=== PATIENT | female | born 1960 | race African-American/Black ===

== ENCOUNTER 2019-10-12 12:24 | Inpatient (IN) | payer MEDICAID ==
[~2019-10-12] VITALS: Ht 165.1 cm; Wt 73.0 kg
[~2019-10-12 12:24] MED LIST: LIDOCAINE HCL/PF 1% 2ML VIAL ONE
[2019-10-12 14:08] LABS: BG CARBOXYHEMOGLOBIN 2.2 % (0.5-1.5); BG DEOXYHEMOGLOBIN 4.7 % (0.0-5.0); BG HCO3 ACT 18.5 mmol/L (22.0-26.0); BG METHEMOGLOBIN 0.3 % (0.0-1.5); BG OXYGEN SATURATION 95.2 % (92.0-98.5); BG OXYHEMOGLOBIN 92.8 % (94.0-97.0); BG PCO2 28.4 mmHg (35.0-45.0); BG PH 7.431 (7.350-7.450); BG PO2 74.8 mmHg (75.0-100.0); BG SAMPLE SITE RIGHT RADIAL; BG TOTAL HEMOGLOBIN 8.9 g/dL (12.0-18.0); BG VENT MODE ROOM AIR
[2019-10-12] MEDS ORDERED: CALCIUM CHLORIDE 1GM/10ML SYR IV ONE (15:00)
[2019-10-12] MEDS ORDERED: INSULIN REGULAR (HUMULIN R) 300UNITS/3ML IV ONE (15:00)
[2019-10-12] MEDS ORDERED: SODIUM BICARBONATE 8.4% 1 MEQ/ML 50ML SYR IV ONE (15:00)
[2019-10-12] MEDS ORDERED: DEXTROSE 50% WATER 50ML SYRINGE IV ONE (15:00)
[2019-10-12 15:08] LABS: BASOPHILS % 0.5 % (0.0-2.0); EOSINOPHILS % 4.2 % (0.0-5.0); HEMATOCRIT. 24.5 % (36.0-48.0); HEMOGLOBIN. 7.9 g/dL (12.0-16.0); MEAN CORPUSCULAR HEMOGLOBIN 26.6 pg (28.0-32.0); MEAN CORPUSCULAR VOLUME 82.6 fL (81.0-99.0); MONOCYTES % 7.9 % (2.0-8.0); NEUTROPHILS % 66.4 % (40.0-76.0); PLATELET 272 x1000/uL (130-400); RED BLOOD CELL COUNT 2.97 mill/uL (4.2-5.4)
[2019-10-12 15:13] LABS: CHLORIDE 100 mEq/L (98-107)
[2019-10-12 15:18] LABS: PHOSPHORUS 3.6 mg/dL (2.5-4.9)
[2019-10-12 16:18] LABS: PLATELET ESTIMATE NORMAL
[2019-10-12] MEDS ORDERED: GUAIFENESIN 200MG/10ML SUGAR FREE UDC PO PRN (16:30)
[2019-10-12] MEDS ORDERED: NA PHOS,M-B/NA PHOS,DI-BA ENEMA 118ML PR PRN (16:30)
[2019-10-12] MEDS ORDERED: DOCUSATE SODIUM 100MG CAPSULE PO PRN (16:30)
[2019-10-12] MEDS ORDERED: ONDANSETRON HCL 4MG/2ML INJ IV PRN (16:30)
[2019-10-13] VITALS: BP 150/99
[2019-10-13] MEDS: CLONIDINE 0.1MG TABLET PO PRN (02:33)
[2019-10-13 04:00] VITALS: BP 150/90
[2019-10-13 06:21] LABS: BASOPHILS % 0.7 % (0.0-2.0); EOSINOPHILS % 6.5 % (0.0-5.0); HEMATOCRIT. 24.8 % (36.0-48.0); HEMOGLOBIN. 8.2 g/dL (12.0-16.0); LYMPHOCYTES % 22.8 % (20.0-50.0); MEAN CORPUSCULAR HEMOGLOBIN 27.2 pg (28.0-32.0); MEAN CORPUSCULAR VOLUME 82.1 fL (81.0-99.0); MEAN PLATELET VOLUME 8.2 fl (7.4-10.4); MONOCYTES % 8.2 % (2.0-8.0); NEUTROPHILS % 61.8 % (40.0-76.0); PLATELET 292 x1000/uL (130-400); RED BLOOD CELL COUNT 3.02 mill/uL (4.2-5.4); RED CELL DISTRIBUTION WIDTH 27.9 % (11.6-14.6)
[2019-10-13 06:30] LABS: CHLORIDE 102 mEq/L (98-107)
[2019-10-13 06:56] LABS: HEPATITIS B SURFACE ANTIGEN NEGATIVE
[2019-10-13 08:00] VITALS: BP 141/75
[2019-10-13] MEDS ORDERED: HEPARIN SODIUM 1,000 UNIT/1ML VIAL IV NR (09:45)
[2019-10-13 10:15] LABS: TOTAL IRON BINDING CAPACITY 134 ug/dL (250-450)
[2019-10-13 12:00] VITALS: BP 121/86
[2019-10-13] MEDS: ACETAMINOPHEN 325MG TABLET PO PRN (14:32)
[2019-10-13 16:00] VITALS: BP 124/92
[2019-10-13 20:00] VITALS: BP 126/82
[2019-10-13] MEDS: HYDROCODONE/ACETAMINOPHEN 5/325MG TABLET PO PRN (22:04)
[2019-10-13] MEDS: EPOETIN ALFA 4000UNITS/ML VIAL SUBCUT SCH (22:27)
[2019-10-14] VITALS: BP 124/86
[2019-10-14] MEDS: NICOTINE 21MG PATCH TD SCH ×2 (00:36→21:05)
[2019-10-14] MEDS: DIPHENHYDRAMINE 50MG/ML VIAL IV PRN ×3 (02:31→22:15)
[2019-10-14 04:00] VITALS: BP 138/88
[2019-10-14 07:36] LABS: BASOPHILS % 0.4 % (0.0-2.0); EOSINOPHILS % 9.1 % (0.0-5.0); HEMATOCRIT. 23.6 % (36.0-48.0); HEMOGLOBIN. 7.7 g/dL (12.0-16.0); LYMPHOCYTES % 30.2 % (20.0-50.0); MEAN CORPUSCULAR HEMOGLOBIN 27.6 pg (28.0-32.0); MEAN CORPUSCULAR VOLUME 84.2 fL (81.0-99.0); MEAN PLATELET VOLUME 7.9 fl (7.4-10.4); MONOCYTES % 9.4 % (2.0-8.0); NEUTROPHILS % 50.9 % (40.0-76.0); PLATELET 266 x1000/uL (130-400); RED BLOOD CELL COUNT 2.81 mill/uL (4.2-5.4); RED CELL DISTRIBUTION WIDTH 28.2 % (11.6-14.6)
[2019-10-14 08:00] VITALS: BP 123/84
[2019-10-14 12:00] VITALS: BP 124/78
[2019-10-14 16:00] VITALS: BP 148/78
[2019-10-14 20:00] VITALS: BP 158/108
[2019-10-14] MEDS: CLONIDINE 0.1MG TABLET PO PRN (21:05)
[2019-10-14] MEDS: HYDROCODONE/ACETAMINOPHEN 5/325MG TABLET PO PRN (21:06)
[2019-10-15] VITALS: BP 134/77
[2019-10-15] MEDS: MORPHINE SULFATE 2 MG/ML CPJ (NOT FOR IM USE) IV PRN (00:10)
[2019-10-15] MEDS: DIPHENHYDRAMINE 50MG/ML VIAL IV PRN (03:04)
[2019-10-15 04:00] VITALS: BP 146/85
[2019-10-15 08:00] VITALS: BP 140/82
[2019-10-15] MEDS: ACETAMINOPHEN 325MG TABLET PO PRN (09:52)
[2019-10-15 12:00] VITALS: BP 118/79
[2019-10-15 16:00] VITALS: BP 128/94
[2019-10-15 20:00] VITALS: BP 119/84
[2019-10-15] MEDS: NICOTINE 21MG PATCH TD SCH (20:55)
[2019-10-15] MEDS: HYDROCODONE/ACETAMINOPHEN 5/325MG TABLET PO PRN (23:41)
[2019-10-16] VITALS: BP 176/80
[2019-10-16] MEDS: CLONIDINE 0.1MG TABLET PO PRN ×2 (00:18→15:26)
[2019-10-16] MEDS: DIPHENHYDRAMINE 50MG/ML VIAL IV PRN ×2 (00:27→15:18)
[2019-10-16 04:00] VITALS: BP 146/87
[2019-10-16 08:00] VITALS: BP 144/70
[2019-10-16 12:00] VITALS: BP 170/90
[2019-10-16 13:15] LABS: BASOPHILS % 0.5 % (0.0-2.0); EOSINOPHILS % 8.6 % (0.0-5.0); HEMATOCRIT. 27.6 % (36.0-48.0); HEMOGLOBIN. 9.1 g/dL (12.0-16.0); MEAN CORPUSCULAR HEMOGLOBIN 27.6 pg (28.0-32.0); MEAN CORPUSCULAR VOLUME 83.6 fL (81.0-99.0); MEAN PLATELET VOLUME 8.7 fl (7.4-10.4); MONOCYTES % 5.7 % (2.0-8.0); NEUTROPHILS % 63.2 % (40.0-76.0); PLATELET 305 x1000/uL (130-400); RED CELL DISTRIBUTION WIDTH 28.8 % (11.6-14.6)
[2019-10-16] MEDS: MORPHINE SULFATE 2 MG/ML CPJ (NOT FOR IM USE) IV PRN (13:58)
[2019-10-16 16:00] VITALS: BP 178/82
[2019-10-16 20:00] VITALS: BP 139/90
[2019-10-16] MEDS: NICOTINE 21MG PATCH TD SCH (20:59)
[2019-10-16 21:18] LABS: HEPATITIS A AB IGM NEGATIVE (NEGATIVE)
[2019-10-17] VITALS: BP 128/87
[2019-10-17] MEDS: HYDROCODONE/ACETAMINOPHEN 5/325MG TABLET PO PRN (00:44)
[2019-10-17 04:00] VITALS: BP 109/80
[2019-10-17] MEDS: EPOETIN ALFA 4000UNITS/ML VIAL SUBCUT SCH (04:51)
[2019-10-17] MEDS: DIPHENHYDRAMINE 50MG/ML VIAL IV PRN ×2 (05:12→22:45)
[2019-10-17 08:00] VITALS: BP 130/79
[2019-10-17 10:32] LABS: BASOPHILS % 0.7 % (0.0-2.0); EOSINOPHILS % 3.3 % (0.0-5.0); HEMATOCRIT. 25.5 % (36.0-48.0); HEMOGLOBIN. 8.4 g/dL (12.0-16.0); LYMPHOCYTES % 21.5 % (20.0-50.0); MEAN CORPUSCULAR HEMOGLOBIN 27.3 pg (28.0-32.0); MEAN CORPUSCULAR VOLUME 83.1 fL (81.0-99.0); NEUTROPHILS % 68.5 % (40.0-76.0); PLATELET 225 x1000/uL (130-400); RED BLOOD CELL COUNT 3.06 mill/uL (4.2-5.4); RED CELL DISTRIBUTION WIDTH 28.6 % (11.6-14.6)
[2019-10-17 12:00] VITALS: BP 126/85
[2019-10-17 16:00] VITALS: BP 125/84
[2019-10-17] MEDS ORDERED: METO1TAB26 MT (19:54)
[2019-10-17] MEDS ORDERED: ALLO100T57 MT (19:54)
[2019-10-17] MEDS ORDERED: LISI-604 MT (19:55)
[2019-10-17] MEDS ORDERED: PRO1 MT (19:55)
[2019-10-17 20:00] VITALS: BP 140/84
[2019-10-17] MEDS: NICOTINE 21MG PATCH TD SCH (21:23)
[2019-10-17] MEDS: ACETAMINOPHEN 325MG TABLET PO PRN (21:23)
[2019-10-18] VITALS: BP 130/85
[2019-10-18] MEDS: ACETAMINOPHEN 325MG TABLET PO PRN ×3 (03:27→23:18)
[2019-10-18 04:00] VITALS: BP 134/88
[2019-10-18 08:00] VITALS: BP 128/66
[2019-10-18] MEDS: DIPHENHYDRAMINE 50MG/ML VIAL IV PRN (09:28)
[2019-10-18 09:47] LABS: BASOPHILS % 0.3 % (0.0-2.0); EOSINOPHILS % 11.2 % (0.0-5.0); HEMATOCRIT. 24.4 % (36.0-48.0); LYMPHOCYTES % 26.2 % (20.0-50.0); MEAN CORPUSCULAR HEMOGLOBIN 27.5 pg (28.0-32.0); MEAN CORPUSCULAR VOLUME 83.3 fL (81.0-99.0); MEAN PLATELET VOLUME 8.2 fl (7.4-10.4); MONOCYTES % 6.2 % (2.0-8.0); NEUTROPHILS % 56.1 % (40.0-76.0); PLATELET 229 x1000/uL (130-400); RED BLOOD CELL COUNT 2.93 mill/uL (4.2-5.4)
[2019-10-18] MEDS: DIPHENHYDRAMINE 50MG CAPSULE PO PRN (10:09)
[2019-10-18 12:00] VITALS: BP 134/84
[2019-10-18 16:00] VITALS: BP 124/84
[2019-10-18 20:00] VITALS: BP 111/73
[2019-10-18] MEDS: NICOTINE 21MG PATCH TD SCH (21:27)
[2019-10-18] MEDS: EPOETIN ALFA 4000UNITS/ML VIAL SUBCUT SCH (21:27)
[2019-10-19] VITALS: BP 126/90
[2019-10-19] MEDS: DIPHENHYDRAMINE 50MG CAPSULE PO PRN ×2 (02:20→21:11)
[2019-10-19 04:00] VITALS: BP 116/77
[2019-10-19 07:50] LABS: BASOPHILS % 0.2 % (0.0-2.0); EOSINOPHILS % 9.2 % (0.0-5.0); HEMATOCRIT. 23.6 % (36.0-48.0); HEMOGLOBIN. 7.8 g/dL (12.0-16.0); LYMPHOCYTES % 17.4 % (20.0-50.0); MEAN CORPUSCULAR VOLUME 84.3 fL (81.0-99.0); MEAN PLATELET VOLUME 8.2 fl (7.4-10.4); MONOCYTES % 5.5 % (2.0-8.0); NEUTROPHILS % 67.7 % (40.0-76.0); PLATELET 219 x1000/uL (130-400); RED CELL DISTRIBUTION WIDTH 28.9 % (11.6-14.6)
[2019-10-19 08:00] VITALS: BP 134/88
[2019-10-19 12:00] VITALS: BP 147/89
[2019-10-19 16:00] VITALS: BP 134/96
[2019-10-19 20:00] VITALS: BP 153/95
[2019-10-19] MEDS: HYDROCODONE/ACETAMINOPHEN 5/325MG TABLET PO PRN (21:11)
[2019-10-19] MEDS: NICOTINE 21MG PATCH TD SCH (21:12)
[2019-10-19] MEDS: EPOETIN ALFA 10000UNITS/ML VIAL SUBCUT SCH (21:24)
[2019-10-20] VITALS: BP 129/88
[2019-10-20 04:00] VITALS: BP 160/92
[2019-10-20 06:41] LABS: BASOPHILS % 0.8 % (0.0-2.0); EOSINOPHILS % 9.9 % (0.0-5.0); HEMATOCRIT. 25.4 % (36.0-48.0); HEMOGLOBIN. 8.3 g/dL (12.0-16.0); LYMPHOCYTES % 25.7 % (20.0-50.0); MEAN CORPUSCULAR HEMOGLOBIN 27.6 pg (28.0-32.0); MEAN CORPUSCULAR VOLUME 84.2 fL (81.0-99.0); MEAN PLATELET VOLUME 8.3 fl (7.4-10.4); NEUTROPHILS % 58.6 % (40.0-76.0); PLATELET 232 x1000/uL (130-400); RED BLOOD CELL COUNT 3.01 mill/uL (4.2-5.4); RED CELL DISTRIBUTION WIDTH 29.3 % (11.6-14.6)
[2019-10-20] MEDS: DIPHENHYDRAMINE 50MG CAPSULE PO PRN ×3 (06:47→22:19)
[2019-10-20 08:00] VITALS: BP 136/86
[2019-10-20 12:00] VITALS: BP 149/98
[2019-10-20] MEDS: HYDROCODONE/ACETAMINOPHEN 5/325MG TABLET PO PRN ×2 (12:19→18:51)
[2019-10-20 16:00] VITALS: BP 136/84
[2019-10-20 20:00] VITALS: BP 130/89
[2019-10-20] MEDS: NICOTINE 21MG PATCH TD SCH (20:38)
[2019-10-21] VITALS: BP 157/106
[2019-10-21 04:00] VITALS: BP 159/99
[2019-10-21] MEDS: DIPHENHYDRAMINE 50MG CAPSULE PO PRN (04:10)
[2019-10-21 08:00] VITALS: BP 144/102
[2019-10-21 12:00] VITALS: BP 145/100
[2019-10-21] MEDS: ACETAMINOPHEN 325MG TABLET PO PRN (12:59)
[2019-10-21 16:00] VITALS: BP 160/97
[2019-10-21] MEDS: HYDROCODONE/ACETAMINOPHEN 5/325MG TABLET PO PRN (19:41)
[2019-10-21 20:00] VITALS: BP 139/102
[2019-10-21] MEDS: EPOETIN ALFA 10000UNITS/ML VIAL SUBCUT SCH (22:21)
[2019-10-21] MEDS: NICOTINE 21MG PATCH TD SCH (22:22)
[2019-10-22] VITALS: BP 148/100
[2019-10-22] MEDS: NICOTINE 21MG PATCH TD SCH ×2 (00:03→21:56)
[2019-10-22] MEDS: DIPHENHYDRAMINE 50MG CAPSULE PO PRN ×3 (00:54→17:28)
[2019-10-22 04:00] VITALS: BP 142/94
[2019-10-22] MEDS: CLONIDINE 0.1MG TABLET PO PRN (07:53)
[2019-10-22] MEDS: HYDROCODONE/ACETAMINOPHEN 5/325MG TABLET PO PRN ×2 (07:54→23:35)
[2019-10-22 08:00] VITALS: BP 184/111
[2019-10-22 12:00] VITALS: BP 157/94
[2019-10-22 16:00] VITALS: BP 144/102
[2019-10-22 20:00] VITALS: BP 176/85
[2019-10-23] VITALS: BP 141/102
[2019-10-23 04:00] VITALS: BP 162/97
[2019-10-23] MEDS: DIPHENHYDRAMINE 50MG CAPSULE PO PRN ×2 (04:16→20:36)
[2019-10-23 08:00] VITALS: BP 157/74
[2019-10-23 08:13] LABS: HEMATOCRIT. 28.5 % (36.0-48.0); HEMOGLOBIN. 9.3 g/dL (12.0-16.0); MEAN CORPUSCULAR HEMOGLOBIN 28.3 pg (28.0-32.0); MEAN CORPUSCULAR VOLUME 86.4 fL (81.0-99.0); PLATELET 232 x1000/uL (130-400); RED BLOOD CELL COUNT 3.29 mill/uL (4.2-5.4); RED CELL DISTRIBUTION WIDTH 28.8 % (11.6-14.6)
[2019-10-23] MEDS ORDERED: DEXTROSE 50% WATER 50ML SYRINGE IV ONE (08:38)
[2019-10-23] MEDS ORDERED: DEXTROSE 50% WATER 50ML SYRINGE IV SCH (08:45)
[2019-10-23] MEDS ORDERED: HEPARIN SODIUM 1,000 UNIT/1ML VIAL IV SCH (09:15)
[2019-10-23 12:00] VITALS: BP 139/86
[2019-10-23 14:20] LABS: ATYPICAL LYMPHOCYTES 2; NUCLEATED RED BLOOD CELLS 6 /100 WBC
[2019-10-23 14:22] LABS: PLATELET ESTIMATE NORMAL
[2019-10-23] MEDS: HYDROCODONE/ACETAMINOPHEN 5/325MG TABLET PO PRN ×2 (15:17→21:42)
[2019-10-23 16:00] VITALS: BP 153/75
[2019-10-23 20:00] VITALS: BP 164/99
[2019-10-23] MEDS: NICOTINE 21MG PATCH TD SCH (20:37)
[2019-10-23] MEDS: CLONIDINE 0.1MG TABLET PO PRN (20:37)
[2019-10-24] VITALS (7 sets, daily range): BP systolic 115–185; BP diastolic 84–109
[2019-10-24] MEDS: DIPHENHYDRAMINE 50MG CAPSULE PO PRN (03:52)
[2019-10-24] MEDS: CLONIDINE 0.1MG TABLET PO PRN (04:41)
[2019-10-24] MEDS: HYDROCODONE/ACETAMINOPHEN 5/325MG TABLET PO PRN (13:28)
== END 2019-10-24 17:57 | disposition home or self-care (01) | DRG 194 ==
LOC: ER 12:24 → 6WST 15:22 → EDBEDREQ 15:25 → EDBEDREQTM 15:25 → ENRESERV 22:34 → 6EST 10-15 15:03
PROVIDERS: ADMIT Hospitalist; ATTEND Hospitalist
PROC: 5A1D70Z Performance of Urinary Filtration, Intermittent, Less than 6 Hours Per Day (ICD-10-PCS; principal; 2019-10-12)
PROC: 5A1D70Z Performance of Urinary Filtration, Intermittent, Less than 6 Hours Per Day (ICD-10-PCS; 2019-10-16)
PROC: 5A1D70Z Performance of Urinary Filtration, Intermittent, Less than 6 Hours Per Day (ICD-10-PCS; 2019-10-18)
PROC: 5A1D70Z Performance of Urinary Filtration, Intermittent, Less than 6 Hours Per Day (ICD-10-PCS; 2019-10-19)
PROC: 5A1D70Z Performance of Urinary Filtration, Intermittent, Less than 6 Hours Per Day (ICD-10-PCS; 2019-10-23)
DX: I13.2 Hypertensive heart and chronic kidney disease with heart failure and with stage 5 chronic kidney disease, or end stage renal disease (principal); E43 Unspecified severe protein-calorie malnutrition; N17.9 Acute kidney failure, unspecified; E11.22 Type 2 diabetes mellitus with diabetic chronic kidney disease; I50.33 Acute on chronic diastolic (congestive) heart failure; N18.6 End stage renal disease; E87.1 Hypo-osmolality and hyponatremia; D63.1 Anemia in chronic kidney disease; E11.649 Type 2 diabetes mellitus with hypoglycemia without coma; Z20.828 Contact with and (suspected) exposure to other viral communicable diseases; Z21 Asymptomatic human immunodeficiency virus [HIV] infection status; Z82.49 Family history of ischemic heart disease and other diseases of the circulatory system; Z99.2 Dependence on renal dialysis; Z91.15 Patient's noncompliance with renal dialysis; Z68.26 Body mass index [BMI] 26.0-26.9, adult; Z79.899 Other long term (current) drug therapy
CPT/HCPCS: 36415; 36600; 71045; 80048; 80053; 82375; 82805; 82962; 83540; 83550; 83735; 84100; 84484; 85025; 86705; 86706; 86709; 86803; 87340; 93005; 93970; 97162; 97530; 97535; 99285; J0885; J1200; J1644; J2270; J3490; Q0163; U0003-CS

== ENCOUNTER 2019-10-26 02:42 | Inpatient (IN) | payer MEDICAID ==
[~2019-10-26] VITALS: Ht 315 cm; Wt 66.2 kg
[~2019-10-26 02:42] MED LIST changes: +ALLO100T57 MT; -LIDOCAINE HCL/PF 1% 2ML VIAL ONE; +LISI-604 MT; +METO1TAB26 MT; +PRO1 MT
[2019-10-26 05:44] LABS: HEMATOCRIT. 33.7 % (36.0-48.0); HEMOGLOBIN. 10.6 g/dL (12.0-16.0); MEAN CORPUSCULAR HEMOGLOBIN 28.3 pg (28.0-32.0); MEAN CORPUSCULAR VOLUME 89.7 fL (81.0-99.0); MEAN PLATELET VOLUME 9.7 fl (7.4-10.4); PLATELET 241 x1000/uL (130-400); RED BLOOD CELL COUNT 3.76 mill/uL (4.2-5.4); RED CELL DISTRIBUTION WIDTH 31.1 % (11.6-14.6)
[2019-10-26 05:48] LABS: CHLORIDE 103 mEq/L (98-107)
[2019-10-26 08:32] LABS: NUCLEATED RED BLOOD CELLS 16 /100 WBC
[2019-10-26 08:34] LABS: PLATELET ESTIMATE NORMAL
[2019-10-26] MEDS ORDERED: ZOLPIDEM TARTRATE 5MG TABLET PO PRN (08:45)
[2019-10-26] MEDS ORDERED: ACETAMINOPHEN 325MG TABLET PO PRN (08:45)
[2019-10-26] MEDS ORDERED: DOCUSATE SODIUM 100MG CAPSULE PO PRN (08:45)
[2019-10-26] MEDS ORDERED: IPRATROPIUM/ALBUTEROL 0.5-3(2.5)MG/3ML NEB NEB PRN (08:45)
[2019-10-26] MEDS ORDERED: NITROGLYCERIN 0.4MG TABLET SL SL PRN (08:45)
[2019-10-26] MEDS ORDERED: SODIUM POLYSTYRENE SULFONATE 15 G/60 ML BOT PO SCH (08:45)
[2019-10-26] MEDS ORDERED: GUAIFENESIN 200MG/10ML SUGAR FREE UDC PO PRN (08:45)
[2019-10-26] MEDS: ZINC SULFATE 220 MG ( 50 ) CAPSULE PO SCH (09:33)
[2019-10-26] MEDS: ASPIRIN 325MG EC TABLET PO SCH (09:34)
[2019-10-26] MEDS: FAMOTIDINE 20MG TABLET PO SCH (09:35)
[2019-10-26] MEDS: ENOXAPARIN 30MG/0.3ML SYR SUBCUT SCH (09:35)
[2019-10-26] MEDS: FOLIC ACID/VITAMIN B COMP W-C TABLET PO SCH (09:45)
[2019-10-26] MEDS: ASCORBIC ACID 500 MG TABLET PO SCH ×2 (11:54→21:00)
[2019-10-26] MEDS: SEVELAMER CARBONATE 800 MG TABLET PO SCH ×2 (11:54→18:30)
[2019-10-26 15:00] VITALS: BP 105/70
[2019-10-26 15:15] VITALS: BP 117/73
[2019-10-26 18:53] LABS: CREATINE KINASE MB FRACTION 1.8 ng/mL (0.5-3.6)
[2019-10-26] MEDS ORDERED: ASPI-1497 PO (19:12)
[2019-10-26] MEDS ORDERED: MEGE400O5 MT (19:12)
[2019-10-26] MEDS ORDERED: [UNRECOGNIZED DRUG - OTHER] (19:41)
[2019-10-26] MEDS ORDERED: MEGE400O5 PO (19:41)
[2019-10-26 19:57] VITALS: BP 131/80
[2019-10-27 00:02] LABS: CREATINE KINASE MB FRACTION 3.2 ng/mL (0.5-3.6)
[2019-10-27 00:04] VITALS: BP 143/77
[2019-10-27 04:48] VITALS: BP 139/80
[2019-10-27 06:27] LABS: HEMATOCRIT. 32.5 % (36.0-48.0); HEMOGLOBIN. 9.7 g/dL (12.0-16.0); MEAN CORPUSCULAR HEMOGLOBIN 28.1 pg (28.0-32.0); MEAN CORPUSCULAR VOLUME 93.9 fL (81.0-99.0); PLATELET 244 x1000/uL (130-400); RED BLOOD CELL COUNT 3.46 mill/uL (4.2-5.4); RED CELL DISTRIBUTION WIDTH 32.3 % (11.6-14.6)
[2019-10-27] MEDS: FOLIC ACID/VITAMIN B COMP W-C TABLET PO SCH (08:56)
[2019-10-27] MEDS: ASPIRIN 325MG EC TABLET PO SCH (08:56)
[2019-10-27] MEDS: ASCORBIC ACID 500 MG TABLET PO SCH ×2 (08:56→21:29)
[2019-10-27] MEDS: ZINC SULFATE 220 MG ( 50 ) CAPSULE PO SCH (08:56)
[2019-10-27] MEDS: SEVELAMER CARBONATE 800 MG TABLET PO SCH ×3 (08:56→17:32)
[2019-10-27] MEDS: ENOXAPARIN 30MG/0.3ML SYR SUBCUT SCH (08:56)
[2019-10-27] MEDS: FAMOTIDINE 20MG TABLET PO SCH (08:56)
[2019-10-27 12:00] VITALS: BP 132/62
[2019-10-27 15:00] LABS: NUCLEATED RED BLOOD CELLS 18 /100 WBC; PLATELET ESTIMATE NORMAL
[2019-10-27 20:00] VITALS: BP 116/73
[2019-10-28 00:07] VITALS: BP 111/74
[2019-10-28 04:00] VITALS: BP 141/74
[2019-10-28 06:18] LABS: HEMATOCRIT. 28.9 % (36.0-48.0); HEMOGLOBIN. 8.8 g/dL (12.0-16.0); MEAN CORPUSCULAR HEMOGLOBIN 28.3 pg (28.0-32.0); MEAN PLATELET VOLUME 9.6 fl (7.4-10.4); PLATELET 168 x1000/uL (130-400); RED BLOOD CELL COUNT 3.11 mill/uL (4.2-5.4); RED CELL DISTRIBUTION WIDTH 30.6 % (11.6-14.6)
[2019-10-28 08:00] VITALS: BP 159/85
[2019-10-28] MEDS: ASCORBIC ACID 500 MG TABLET PO SCH ×2 (08:03→21:07)
[2019-10-28] MEDS: FOLIC ACID/VITAMIN B COMP W-C TABLET PO SCH (08:03)
[2019-10-28] MEDS: ENOXAPARIN 30MG/0.3ML SYR SUBCUT SCH (08:03)
[2019-10-28] MEDS: ASPIRIN 325MG EC TABLET PO SCH (08:03)
[2019-10-28] MEDS: FAMOTIDINE 20MG TABLET PO SCH (08:04)
[2019-10-28] MEDS: ZINC SULFATE 220 MG ( 50 ) CAPSULE PO SCH (08:04)
[2019-10-28] MEDS: SEVELAMER CARBONATE 800 MG TABLET PO SCH ×3 (08:04→17:14)
[2019-10-28 09:21] LABS: NUCLEATED RED BLOOD CELLS 31 /100 WBC
[2019-10-28 09:23] LABS: PLATELET ESTIMATE NORMAL
[2019-10-28 13:50] LABS: CHLORIDE 107 mEq/L (98-107)
[2019-10-28 14:18] LABS: HEPATITIS B SURFACE ANTIGEN NEGATIVE
[2019-10-28 14:47] LABS: HEPATITIS A AB IGM NEGATIVE (NEGATIVE)
[2019-10-28 16:00] VITALS: BP 138/80
[2019-10-28 16:45] LABS: FOLIC ACID (FOLATE) SERUM >20 ng/mL ng/mL (>5.38)
[2019-10-28 16:57] LABS: VITAMIN B12 SERUM >2000 pg/mL pg/mL (211-911)
[2019-10-28 19:45] VITALS: BP 128/85
[2019-10-28] MEDS: ACETAMINOPHEN 325MG TABLET PO PRN (21:08)
[2019-10-29] VITALS: BP 144/85
[2019-10-29 04:00] VITALS: BP 132/64
[2019-10-29 07:39] LABS: BASOPHILS % 1.1 % (0.0-2.0); EOSINOPHILS % 3.1 % (0.0-5.0); HEMATOCRIT. 28.8 % (36.0-48.0); HEMOGLOBIN. 8.8 g/dL (12.0-16.0); LYMPHOCYTES % 24.7 % (20.0-50.0); MEAN CORPUSCULAR HEMOGLOBIN 29.2 pg (28.0-32.0); MEAN CORPUSCULAR VOLUME 95.3 fL (81.0-99.0); MEAN PLATELET VOLUME 9.7 fl (7.4-10.4); MONOCYTES % 8.5 % (2.0-8.0); NEUTROPHILS % 62.6 % (40.0-76.0); PLATELET 162 x1000/uL (130-400); RED BLOOD CELL COUNT 3.03 mill/uL (4.2-5.4); RED CELL DISTRIBUTION WIDTH 30.5 % (11.6-14.6)
[2019-10-29 08:00] VITALS: BP 124/77
[2019-10-29] MEDS: FAMOTIDINE 20MG TABLET PO SCH (08:57)
[2019-10-29] MEDS: ASPIRIN 325MG EC TABLET PO SCH (08:57)
[2019-10-29] MEDS: FOLIC ACID/VITAMIN B COMP W-C TABLET PO SCH (08:58)
[2019-10-29] MEDS: ASCORBIC ACID 500 MG TABLET PO SCH ×2 (08:58→20:33)
[2019-10-29] MEDS: ZINC SULFATE 220 MG ( 50 ) CAPSULE PO SCH (08:58)
[2019-10-29] MEDS: SEVELAMER CARBONATE 800 MG TABLET PO SCH ×3 (08:58→18:21)
[2019-10-29] MEDS: ENOXAPARIN 30MG/0.3ML SYR SUBCUT SCH (08:58)
[2019-10-29] MEDS ORDERED: POTASSIUM CHLORIDE 10MEQ TABLET SR PO SCH (11:00)
[2019-10-29 12:00] VITALS: BP 186/95
[2019-10-29 12:40] LABS: PHOSPHORUS 2.8 mg/dL (2.5-4.9)
[2019-10-29] MEDS: CLONIDINE 0.1MG TABLET PO PRN ×2 (14:03→20:33)
[2019-10-29 16:00] VITALS: BP 128/61
[2019-10-29 17:27] LABS: ETHANOL BLOOD < 10 mg/dL
[2019-10-29 17:33] LABS: T4 FREE 1.35 ng/dL (0.76-1.46)
[2019-10-29 20:00] VITALS: BP 163/96
[2019-10-30] VITALS (7 sets, daily range): BP systolic 124–198; BP diastolic 85–102
[2019-10-30 07:36] LABS: HEMATOCRIT. 30.1 % (36.0-48.0); HEMOGLOBIN. 9.1 g/dL (12.0-16.0); MEAN CORPUSCULAR HEMOGLOBIN 29.3 pg (28.0-32.0); MEAN CORPUSCULAR VOLUME 97.1 fL (81.0-99.0); MEAN PLATELET VOLUME 9.8 fl (7.4-10.4); PLATELET 162 x1000/uL (130-400); RED CELL DISTRIBUTION WIDTH 30.7 % (11.6-14.6)
[2019-10-30] MEDS: FAMOTIDINE 20MG TABLET PO SCH (08:46)
[2019-10-30] MEDS: ZINC SULFATE 220 MG ( 50 ) CAPSULE PO SCH (08:46)
[2019-10-30] MEDS: ASPIRIN 325MG EC TABLET PO SCH (08:46)
[2019-10-30] MEDS: ASCORBIC ACID 500 MG TABLET PO SCH ×2 (08:46→20:56)
[2019-10-30] MEDS: SEVELAMER CARBONATE 800 MG TABLET PO SCH ×3 (08:46→18:13)
[2019-10-30] MEDS: FOLIC ACID/VITAMIN B COMP W-C TABLET PO SCH (08:46)
[2019-10-30] MEDS: ENOXAPARIN 30MG/0.3ML SYR SUBCUT SCH (08:47)
[2019-10-30 14:01] LABS: NUCLEATED RED BLOOD CELLS 71 /100 WBC; PLATELET ESTIMATE NORMAL
[2019-10-30] MEDS: CLONIDINE 0.1MG TABLET PO PRN (18:14)
[2019-10-31] VITALS: BP 202/104
[2019-10-31] MEDS: CLONIDINE 0.1MG TABLET PO PRN ×2 (00:16→20:56)
[2019-10-31 04:00] VITALS: BP 131/83
[2019-10-31 06:46] LABS: HEMATOCRIT. 28.2 % (36.0-48.0); HEMOGLOBIN. 8.7 g/dL (12.0-16.0); MEAN CORPUSCULAR HEMOGLOBIN 29.4 pg (28.0-32.0); MEAN CORPUSCULAR VOLUME 95.1 fL (81.0-99.0); PLATELET 158 x1000/uL (130-400); RED BLOOD CELL COUNT 2.96 mill/uL (4.2-5.4); RED CELL DISTRIBUTION WIDTH 30.7 % (11.6-14.6)
[2019-10-31] MEDS: SEVELAMER CARBONATE 800 MG TABLET PO SCH (07:48)
[2019-10-31 08:00] VITALS: BP 154/94
[2019-10-31 10:51] LABS: NUCLEATED RED BLOOD CELLS 32 /100 WBC
[2019-10-31 10:53] LABS: PLATELET ESTIMATE NORMAL
[2019-10-31 12:00] VITALS: BP 136/100
[2019-10-31] MEDS: FOLIC ACID/VITAMIN B COMP W-C TABLET PO SCH (15:31)
[2019-10-31] MEDS: ASPIRIN 325MG EC TABLET PO SCH (15:31)
[2019-10-31] MEDS: ZINC SULFATE 220 MG ( 50 ) CAPSULE PO SCH (15:31)
[2019-10-31] MEDS: FAMOTIDINE 20MG TABLET PO SCH (15:31)
[2019-10-31] MEDS: ENOXAPARIN 30MG/0.3ML SYR SUBCUT SCH (15:33)
[2019-10-31 20:00] VITALS: BP 173/103
[2019-10-31] MEDS: ASCORBIC ACID 500 MG TABLET PO SCH (20:56)
[2019-11-01] VITALS: BP 161/91
[2019-11-01 04:09] VITALS: BP 160/88
[2019-11-01 08:00] VITALS: BP 178/99
[2019-11-01] MEDS: ASPIRIN 325MG EC TABLET PO SCH (08:28)
[2019-11-01] MEDS: CLONIDINE 0.1MG TABLET PO PRN ×2 (08:29→20:11)
[2019-11-01] MEDS: ENOXAPARIN 30MG/0.3ML SYR SUBCUT SCH (08:29)
[2019-11-01] MEDS: FOLIC ACID/VITAMIN B COMP W-C TABLET PO SCH (08:29)
[2019-11-01] MEDS: FAMOTIDINE 20MG TABLET PO SCH (08:29)
[2019-11-01] MEDS: ASCORBIC ACID 500 MG TABLET PO SCH ×2 (08:29→20:11)
[2019-11-01] MEDS: ZINC SULFATE 220 MG ( 50 ) CAPSULE PO SCH (08:29)
[2019-11-01] MEDS: ACETAMINOPHEN 325MG TABLET PO PRN (08:32)
[2019-11-01] MEDS: ONDANSETRON HCL 4MG/2ML INJ IV PRN ×2 (11:51→20:11)
[2019-11-01] MEDS: SEVELAMER CARBONATE 800 MG TABLET PO SCH ×2 (11:52→16:35)
[2019-11-01 12:00] VITALS: BP 113/72
[2019-11-01 16:00] VITALS: BP 140/89
[2019-11-01 20:00] VITALS: BP 169/93
[2019-11-01] MEDS: DIPHENHYDRAMINE 50MG/ML VIAL IV PRN (20:11)
[2019-11-02] VITALS: BP 157/89
[2019-11-02 04:00] VITALS: BP 149/83
[2019-11-02] MEDS: MAGNESIUM/ALUMINUM HYDROXIDE/SIMETHICONE 30ML UDC PO PRN ×2 (04:47→13:47)
[2019-11-02] MEDS: ACETAMINOPHEN 325MG TABLET PO PRN ×4 (04:47→18:34)
[2019-11-02 06:53] LABS: HEMATOCRIT. 29.3 % (36.0-48.0); MEAN CORPUSCULAR HEMOGLOBIN 29.8 pg (28.0-32.0); MEAN CORPUSCULAR VOLUME 97.2 fL (81.0-99.0); MEAN PLATELET VOLUME 10.1 fl (7.4-10.4); PLATELET 153 x1000/uL (130-400); RED BLOOD CELL COUNT 3.02 mill/uL (4.2-5.4); RED CELL DISTRIBUTION WIDTH 28.7 % (11.6-14.6)
[2019-11-02 08:00] VITALS: BP 144/80
[2019-11-02] MEDS: ENOXAPARIN 30MG/0.3ML SYR SUBCUT SCH (08:44)
[2019-11-02] MEDS: SEVELAMER CARBONATE 800 MG TABLET PO SCH ×4 (08:44→18:34)
[2019-11-02] MEDS: ASPIRIN 325MG EC TABLET PO SCH (08:44)
[2019-11-02] MEDS: FOLIC ACID/VITAMIN B COMP W-C TABLET PO SCH (08:44)
[2019-11-02] MEDS: ASCORBIC ACID 500 MG TABLET PO SCH ×2 (08:44→21:06)
[2019-11-02] MEDS: ZINC SULFATE 220 MG ( 50 ) CAPSULE PO SCH (08:47)
[2019-11-02] MEDS: FAMOTIDINE 20MG TABLET PO SCH (08:47)
[2019-11-02 12:00] VITALS: BP 149/84
[2019-11-02 14:22] LABS: NUCLEATED RED BLOOD CELLS 5 /100 WBC; PLATELET ESTIMATE NORMAL
[2019-11-02 16:00] VITALS: BP 115/73
[2019-11-02 20:00] VITALS: BP 117/82
[2019-11-03] VITALS: BP 164/88
[2019-11-03 04:00] VITALS: BP 131/81
[2019-11-03 08:00] VITALS: BP 132/81
[2019-11-03] MEDS: FOLIC ACID/VITAMIN B COMP W-C TABLET PO SCH (08:27)
[2019-11-03] MEDS: SEVELAMER CARBONATE 800 MG TABLET PO SCH ×3 (08:27→17:35)
[2019-11-03] MEDS: FAMOTIDINE 20MG TABLET PO SCH (08:27)
[2019-11-03] MEDS: ZINC SULFATE 220 MG ( 50 ) CAPSULE PO SCH (08:27)
[2019-11-03] MEDS: ENOXAPARIN 30MG/0.3ML SYR SUBCUT SCH (08:27)
[2019-11-03] MEDS: ASPIRIN 325MG EC TABLET PO SCH (08:27)
[2019-11-03] MEDS: ASCORBIC ACID 500 MG TABLET PO SCH ×2 (08:27→20:46)
[2019-11-03] MEDS: ACETAMINOPHEN 325MG TABLET PO PRN (08:28)
[2019-11-03 12:00] VITALS: BP 147/77
[2019-11-03] MEDS: LACTOBACILLUS GG CAPSULE PO SCH (14:18)
[2019-11-03] MEDS: NICOTINE 7MG PATCH TD SCH (14:19)
[2019-11-03 16:00] VITALS: BP 131/68
[2019-11-03] MEDS: DIPHENHYDRAMINE 50MG/ML VIAL IV PRN (22:02)
[2019-11-04] VITALS: BP 164/84
[2019-11-04] MEDS: DIPHENHYDRAMINE 50MG/ML VIAL IV PRN ×3 (03:05→20:13)
[2019-11-04 04:00] VITALS: BP 122/87
[2019-11-04] MEDS: ACETAMINOPHEN 325MG TABLET PO PRN ×4 (04:20→20:13)
[2019-11-04 06:35] LABS: HEMATOCRIT. 28.1 % (36.0-48.0); HEMOGLOBIN. 8.6 g/dL (12.0-16.0); MEAN CORPUSCULAR HEMOGLOBIN 29.5 pg (28.0-32.0); MEAN CORPUSCULAR VOLUME 96.5 fL (81.0-99.0); MEAN PLATELET VOLUME 9.9 fl (7.4-10.4); PLATELET 167 x1000/uL (130-400); RED BLOOD CELL COUNT 2.91 mill/uL (4.2-5.4)
[2019-11-04 08:10] VITALS: BP 149/76
[2019-11-04] MEDS: NICOTINE 7MG PATCH TD SCH (08:17)
[2019-11-04] MEDS: ASCORBIC ACID 500 MG TABLET PO SCH ×2 (08:21→20:06)
[2019-11-04] MEDS: ENOXAPARIN 30MG/0.3ML SYR SUBCUT SCH (08:21)
[2019-11-04] MEDS: LACTOBACILLUS GG CAPSULE PO SCH (08:21)
[2019-11-04] MEDS: ZINC SULFATE 220 MG ( 50 ) CAPSULE PO SCH (08:21)
[2019-11-04] MEDS: ASPIRIN 325MG EC TABLET PO SCH (08:21)
[2019-11-04] MEDS: SEVELAMER CARBONATE 800 MG TABLET PO SCH ×3 (08:21→17:18)
[2019-11-04] MEDS: FOLIC ACID/VITAMIN B COMP W-C TABLET PO SCH (08:22)
[2019-11-04] MEDS: FAMOTIDINE 20MG TABLET PO SCH (08:22)
[2019-11-04] MEDS ORDERED: HEPARIN SODIUM 1,000 UNIT/1ML VIAL IV NR (09:15)
[2019-11-04 12:07] VITALS: BP 141/74
[2019-11-04 13:06] LABS: 25-HYDROXY VITAMIN D3 13 ng/mL (.)
[2019-11-04 14:48] LABS: ATYPICAL LYMPHOCYTES 1; NUCLEATED RED BLOOD CELLS 4 /100 WBC
[2019-11-04 14:49] LABS: PLATELET ESTIMATE NORMAL
[2019-11-04 16:36] VITALS: BP 139/81
[2019-11-04 20:00] VITALS: BP 156/98
[2019-11-04] MEDS: CLONIDINE 0.1MG TABLET PO PRN (23:20)
[2019-11-05] VITALS: BP 181/103
[2019-11-05 04:00] VITALS: BP 167/92
[2019-11-05] MEDS: CLONIDINE 0.1MG TABLET PO PRN (05:40)
[2019-11-05 08:00] VITALS: BP 133/79
[2019-11-05] MEDS: FOLIC ACID/VITAMIN B COMP W-C TABLET PO SCH (08:49)
[2019-11-05] MEDS: ASPIRIN 325MG EC TABLET PO SCH (08:49)
[2019-11-05] MEDS: LACTOBACILLUS GG CAPSULE PO SCH (08:49)
[2019-11-05] MEDS: ZINC SULFATE 220 MG ( 50 ) CAPSULE PO SCH (08:49)
[2019-11-05] MEDS: SEVELAMER CARBONATE 800 MG TABLET PO SCH ×3 (08:49→19:19)
[2019-11-05] MEDS: FAMOTIDINE 20MG TABLET PO SCH (08:49)
[2019-11-05] MEDS: ASCORBIC ACID 500 MG TABLET PO SCH ×2 (08:49→20:44)
[2019-11-05] MEDS: NICOTINE 7MG PATCH TD SCH (08:50)
[2019-11-05] MEDS: ENOXAPARIN 30MG/0.3ML SYR SUBCUT SCH (08:51)
[2019-11-05] MEDS: MAGNESIUM/ALUMINUM HYDROXIDE/SIMETHICONE 30ML UDC PO PRN (10:26)
[2019-11-05] MEDS: ACETAMINOPHEN 325MG TABLET PO PRN ×2 (11:14→22:08)
[2019-11-05 12:00] VITALS: BP 133/88
[2019-11-05] MEDS ORDERED: ERGOCALCIFEROL 50000UNITS CAPSULE PO SCH (13:00)
[2019-11-05 16:00] VITALS: BP 151/86
[2019-11-05 20:00] VITALS: BP 151/89
[2019-11-05] MEDS: DIPHENHYDRAMINE 50MG/ML VIAL IV PRN (20:02)
[2019-11-06] VITALS: BP 167/89
[2019-11-06] MEDS: CLONIDINE 0.1MG TABLET PO PRN (01:01)
[2019-11-06 04:00] VITALS: BP 134/84
[2019-11-06] MEDS: DIPHENHYDRAMINE 50MG/ML VIAL IV PRN ×3 (04:12→22:56)
[2019-11-06] MEDS: ACETAMINOPHEN 325MG TABLET PO PRN ×2 (04:17→23:06)
[2019-11-06 08:00] VITALS: BP 148/86
[2019-11-06] MEDS: FAMOTIDINE 20MG TABLET PO SCH (08:26)
[2019-11-06] MEDS: SEVELAMER CARBONATE 800 MG TABLET PO SCH ×3 (08:26→17:15)
[2019-11-06] MEDS: FOLIC ACID/VITAMIN B COMP W-C TABLET PO SCH (08:26)
[2019-11-06] MEDS: ZINC SULFATE 220 MG ( 50 ) CAPSULE PO SCH (08:26)
[2019-11-06] MEDS: ENOXAPARIN 30MG/0.3ML SYR SUBCUT SCH (08:26)
[2019-11-06] MEDS: ASPIRIN 325MG EC TABLET PO SCH (08:26)
[2019-11-06] MEDS: LACTOBACILLUS GG CAPSULE PO SCH (08:26)
[2019-11-06] MEDS: NICOTINE 7MG PATCH TD SCH (08:27)
[2019-11-06] MEDS: ASCORBIC ACID 500 MG TABLET PO SCH ×2 (08:29→20:10)
[2019-11-06] MEDS ORDERED: HEPARIN SODIUM 1,000 UNIT/1ML VIAL IV ONE (09:30)
[2019-11-06] MEDS ORDERED: HEPARIN SODIUM 1,000 UNIT/1ML VIAL IV NR (09:30)
[2019-11-06 11:44] LABS: HEMATOCRIT. 32.1 % (36.0-48.0); HEMOGLOBIN. 10.3 g/dL (12.0-16.0); MEAN CORPUSCULAR HEMOGLOBIN 31.7 pg (28.0-32.0); MEAN CORPUSCULAR VOLUME 98.6 fL (81.0-99.0); MEAN PLATELET VOLUME 9.8 fl (7.4-10.4); PLATELET 162 x1000/uL (130-400); RED BLOOD CELL COUNT 3.25 mill/uL (4.2-5.4); RED CELL DISTRIBUTION WIDTH 28.1 % (11.6-14.6)
[2019-11-06 12:00] VITALS: BP 145/84
[2019-11-06] MEDS: SUCRALFATE 1 G/10 ML UDC PO SCH ×3 (13:09→20:10)
[2019-11-06 13:21] LABS: NUCLEATED RED BLOOD CELLS 1 /100 WBC; PLATELET ESTIMATE NORMAL
[2019-11-06 16:00] VITALS: BP 141/84
[2019-11-06 20:00] VITALS: BP 132/83
[2019-11-07] VITALS: BP 128/82
[2019-11-07] MEDS: DIPHENHYDRAMINE 50MG/ML VIAL IV PRN ×3 (03:12→23:14)
[2019-11-07 04:00] VITALS: BP 114/78
[2019-11-07] MEDS: SUCRALFATE 1 G/10 ML UDC PO SCH ×4 (06:21→21:17)
[2019-11-07 08:00] VITALS: BP 121/69
[2019-11-07] MEDS: SEVELAMER CARBONATE 800 MG TABLET PO SCH ×3 (08:34→16:57)
[2019-11-07] MEDS: ZINC SULFATE 220 MG ( 50 ) CAPSULE PO SCH (08:34)
[2019-11-07] MEDS: LACTOBACILLUS GG CAPSULE PO SCH (08:34)
[2019-11-07] MEDS: ASCORBIC ACID 500 MG TABLET PO SCH ×2 (08:34→21:17)
[2019-11-07] MEDS: FAMOTIDINE 20MG TABLET PO SCH (08:34)
[2019-11-07] MEDS: FOLIC ACID/VITAMIN B COMP W-C TABLET PO SCH (08:34)
[2019-11-07] MEDS: NICOTINE 7MG PATCH TD SCH (08:34)
[2019-11-07] MEDS: ASPIRIN 325MG EC TABLET PO SCH (08:34)
[2019-11-07] MEDS: ENOXAPARIN 30MG/0.3ML SYR SUBCUT SCH (08:36)
[2019-11-07 12:00] VITALS: BP 158/82
[2019-11-07 16:00] VITALS: BP 141/78
[2019-11-07] MEDS: ACETAMINOPHEN 325MG TABLET PO PRN (16:21)
[2019-11-07] MEDS: CLONIDINE 0.1MG TABLET PO PRN (21:17)
[2019-11-07 21:22] VITALS: BP 176/89
[2019-11-08 00:11] VITALS: BP 185/95
[2019-11-08 05:42] VITALS: BP 153/93
[2019-11-08] MEDS: SUCRALFATE 1 G/10 ML UDC PO SCH ×4 (06:23→20:46)
[2019-11-08 07:30] LABS: HEMATOCRIT. 29.1 % (36.0-48.0); HEMOGLOBIN. 8.9 g/dL (12.0-16.0); MEAN CORPUSCULAR HEMOGLOBIN 29.9 pg (28.0-32.0); MEAN CORPUSCULAR VOLUME 97.5 fL (81.0-99.0); MEAN PLATELET VOLUME 9.9 fl (7.4-10.4); PLATELET 174 x1000/uL (130-400); RED BLOOD CELL COUNT 2.99 mill/uL (4.2-5.4); RED CELL DISTRIBUTION WIDTH 26.9 % (11.6-14.6)
[2019-11-08 08:00] VITALS: BP 148/83
[2019-11-08 08:46] LABS: NUCLEATED RED BLOOD CELLS 2 /100 WBC
[2019-11-08 08:47] LABS: PLATELET ESTIMATE NORMAL
[2019-11-08] MEDS: ENOXAPARIN 30MG/0.3ML SYR SUBCUT SCH (09:30)
[2019-11-08] MEDS: SEVELAMER CARBONATE 800 MG TABLET PO SCH ×3 (09:31→17:50)
[2019-11-08] MEDS: FAMOTIDINE 20MG TABLET PO SCH (09:31)
[2019-11-08] MEDS: NICOTINE 7MG PATCH TD SCH (09:31)
[2019-11-08] MEDS: ZINC SULFATE 220 MG ( 50 ) CAPSULE PO SCH (09:32)
[2019-11-08] MEDS: LACTOBACILLUS GG CAPSULE PO SCH (09:32)
[2019-11-08] MEDS: FOLIC ACID/VITAMIN B COMP W-C TABLET PO SCH (09:32)
[2019-11-08] MEDS: ASCORBIC ACID 500 MG TABLET PO SCH ×2 (09:32→21:00)
[2019-11-08] MEDS: ASPIRIN 325MG EC TABLET PO SCH (09:36)
[2019-11-08] MEDS: DIPHENHYDRAMINE 50MG/ML VIAL IV PRN ×3 (10:20→23:10)
[2019-11-08 12:00] VITALS: BP 157/98
[2019-11-08 16:00] VITALS: BP 116/83
[2019-11-08] MEDS: ACETAMINOPHEN 325MG TABLET PO PRN (17:25)
[2019-11-08 20:00] VITALS: BP 148/90
[2019-11-09] VITALS: BP 163/98
[2019-11-09] MEDS: DIPHENHYDRAMINE 50MG/ML VIAL IV PRN ×4 (03:10→20:01)
[2019-11-09 04:00] VITALS: BP 166/90
[2019-11-09 06:15] LABS: HEMATOCRIT. 29.1 % (36.0-48.0); MEAN CORPUSCULAR HEMOGLOBIN 30.4 pg (28.0-32.0); MEAN CORPUSCULAR VOLUME 98.2 fL (81.0-99.0); MEAN PLATELET VOLUME 9.8 fl (7.4-10.4); PLATELET 166 x1000/uL (130-400); RED BLOOD CELL COUNT 2.97 mill/uL (4.2-5.4); RED CELL DISTRIBUTION WIDTH 26.7 % (11.6-14.6)
[2019-11-09 07:12] LABS: BARBITURATE SCREEN Negative ug/mL (Cutoff:0.1); BENZODIAZEPINE SCREEN Negative ng/mL (Cutoff:20); OPIATES SCREEN Negative ng/mL (Cutoff:5); PHENCYCLIDINE SCREEN Negative ng/mL (Cutoff:8)
[2019-11-09] MEDS: SUCRALFATE 1 G/10 ML UDC PO SCH ×4 (07:20→20:01)
[2019-11-09 07:45] VITALS: BP 165/84
[2019-11-09] MEDS: ZINC SULFATE 220 MG ( 50 ) CAPSULE PO SCH (08:20)
[2019-11-09] MEDS: ASPIRIN 325MG EC TABLET PO SCH (08:20)
[2019-11-09] MEDS: NICOTINE 7MG PATCH TD SCH (08:21)
[2019-11-09] MEDS: LACTOBACILLUS GG CAPSULE PO SCH (08:21)
[2019-11-09] MEDS: ASCORBIC ACID 500 MG TABLET PO SCH ×2 (08:21→20:01)
[2019-11-09] MEDS: ENOXAPARIN 30MG/0.3ML SYR SUBCUT SCH (08:21)
[2019-11-09] MEDS: FOLIC ACID/VITAMIN B COMP W-C TABLET PO SCH (08:21)
[2019-11-09] MEDS: FAMOTIDINE 20MG TABLET PO SCH (08:21)
[2019-11-09] MEDS: ACETAMINOPHEN 325MG TABLET PO PRN ×2 (08:22→08:40)
[2019-11-09] MEDS: SEVELAMER CARBONATE 800 MG TABLET PO SCH ×3 (08:23→18:34)
[2019-11-09 10:02] LABS: NUCLEATED RED BLOOD CELLS 1 /100 WBC; PLATELET ESTIMATE NORMAL
[2019-11-09 11:39] VITALS: BP 170/97
[2019-11-09 16:04] VITALS: BP 133/85
[2019-11-09 20:00] VITALS: BP 126/81
[2019-11-10] VITALS (7 sets, daily range): BP systolic 126–181; BP diastolic 85–107
[2019-11-10] MEDS: DIPHENHYDRAMINE 50MG/ML VIAL IV PRN (02:36)
[2019-11-10] MEDS: ACETAMINOPHEN 325MG TABLET PO PRN (03:15)
[2019-11-10] MEDS: SUCRALFATE 1 G/10 ML UDC PO SCH ×4 (06:29→20:14)
[2019-11-10 07:33] LABS: HEMATOCRIT. 27.2 % (36.0-48.0); HEMOGLOBIN. 8.5 g/dL (12.0-16.0); MEAN CORPUSCULAR VOLUME 98.7 fL (81.0-99.0); MEAN PLATELET VOLUME 9.6 fl (7.4-10.4); PLATELET 166 x1000/uL (130-400); RED BLOOD CELL COUNT 2.75 mill/uL (4.2-5.4); RED CELL DISTRIBUTION WIDTH 25.9 % (11.6-14.6)
[2019-11-10] MEDS: SEVELAMER CARBONATE 800 MG TABLET PO SCH ×3 (07:40→17:09)
[2019-11-10] MEDS: FAMOTIDINE 20MG TABLET PO SCH (08:48)
[2019-11-10] MEDS: NICOTINE 7MG PATCH TD SCH (08:48)
[2019-11-10] MEDS: LACTOBACILLUS GG CAPSULE PO SCH (08:48)
[2019-11-10] MEDS: FOLIC ACID/VITAMIN B COMP W-C TABLET PO SCH (08:48)
[2019-11-10] MEDS: ZINC SULFATE 220 MG ( 50 ) CAPSULE PO SCH (08:48)
[2019-11-10] MEDS: ASPIRIN 325MG EC TABLET PO SCH (08:49)
[2019-11-10] MEDS: ENOXAPARIN 30MG/0.3ML SYR SUBCUT SCH (08:49)
[2019-11-10] MEDS: ASCORBIC ACID 500 MG TABLET PO SCH ×2 (08:49→20:14)
[2019-11-10 09:58] LABS: NUCLEATED RED BLOOD CELLS 2 /100 WBC
[2019-11-10 09:59] LABS: PLATELET ESTIMATE NORMAL
[2019-11-10] MEDS: CLONIDINE 0.1MG TABLET PO PRN (17:43)
[2019-11-10] MEDS ORDERED: CLONIDINE 0.1MG TABLET PO NR (20:15)
== END 2019-11-10 21:45 | DRG 425 ==
LOC: ER 02:49 → MICUSO 08:04 → 6WST 14:58
PROVIDERS: ADMIT Internal Medicine; ATTEND Internal Medicine
PROC: 5A1D70Z Performance of Urinary Filtration, Intermittent, Less than 6 Hours Per Day (ICD-10-PCS; principal; 2019-10-26)
PROC: 5A1D70Z Performance of Urinary Filtration, Intermittent, Less than 6 Hours Per Day (ICD-10-PCS; 2019-10-28)
PROC: 5A1D70Z Performance of Urinary Filtration, Intermittent, Less than 6 Hours Per Day (ICD-10-PCS; 2019-10-31)
PROC: 5A1D70Z Performance of Urinary Filtration, Intermittent, Less than 6 Hours Per Day (ICD-10-PCS; 2019-11-02)
PROC: 5A1D70Z Performance of Urinary Filtration, Intermittent, Less than 6 Hours Per Day (ICD-10-PCS; 2019-11-04)
PROC: 5A1D70Z Performance of Urinary Filtration, Intermittent, Less than 6 Hours Per Day (ICD-10-PCS; 2019-11-06)
PROC: 5A1D70Z Performance of Urinary Filtration, Intermittent, Less than 6 Hours Per Day (ICD-10-PCS; 2019-11-08)
PROC: 5A1D70Z Performance of Urinary Filtration, Intermittent, Less than 6 Hours Per Day (ICD-10-PCS; 2019-11-10)
DX: E87.5 Hyperkalemia (principal); G92 Toxic encephalopathy; E43 Unspecified severe protein-calorie malnutrition; I12.0 Hypertensive chronic kidney disease with stage 5 chronic kidney disease or end stage renal disease; G62.9 Polyneuropathy, unspecified; N18.6 End stage renal disease; E83.51 Hypocalcemia; D63.8 Anemia in other chronic diseases classified elsewhere; M10.9 Gout, unspecified; R74.0 Nonspecific elevation of levels of transaminase and lactic acid dehydrogenase [LDH]; R26.2 Difficulty in walking, not elsewhere classified; R41.89 Other symptoms and signs involving cognitive functions and awareness; R79.89 Other specified abnormal findings of blood chemistry; D72.829 Elevated white blood cell count, unspecified; R53.81 Other malaise; R90.82 White matter disease, unspecified; Z20.828 Contact with and (suspected) exposure to other viral communicable diseases; Z91.14 Patient's other noncompliance with medication regimen; Z99.2 Dependence on renal dialysis; Z79.899 Other long term (current) drug therapy; Z68.1 Body mass index [BMI] 19.9 or less, adult; Z82.49 Family history of ischemic heart disease and other diseases of the circulatory system; Z91.19 Patient's noncompliance with other medical treatment and regimen
CPT/HCPCS: 36415; 70551; 71045; 72170; 76700; 80048; 80053; 80061; 80307; 80320; 82140; 82306; 82550; 82553; 82607; 82746; 82962; 83036; 83735; 84100; 84439; 84443; 84481; 84484; 85025; 86705; 86709; 86803; 87340; 92523; 92610; 93005; 93970; 97110; 97116; 97162; 97166; 97530; 97535; 99285; J1200; J1644; J1650; J2405; G0480; U0003-CS